=== PATIENT | female | born 1995 | race Caucasian/White ===

== ENCOUNTER 2017-08-27 11:27 | Emergency (ER) | payer SELFPAY ==
[2017-08-27] MEDS ORDERED: NORMAL SALINE 1000 ML 1,000 ML IV ONE (11:39)
--- NOTE | 2017-08-27 11:45 | ER Document Report ---
ED Medical Screen (RME) - General Chief Complaint: Vomiting Stated Complaint: ABDOMINAL PAIN,VOMITING Time Seen by Provider: 08/27/17 11:39 Mode of Arrival: Ambulatory Information source: Patient TRAVEL OUTSIDE OF THE [place] IN LAST 30 DAYS: No - HPI Patient complains to provider of: abd pain; vomiting Onset: Yesterday - pt states she has vomited 6-7 times since yesterday am with intermittent abdominal pain. - Related Data Allergies/Adverse Reactions: No Known Allergies Allergy (Verified 08/27/17 11:27) Past Medical History - Social History Frequency of alcohol use: None Drug Abuse: None Renal/ Medical History: Denies: Hx Peritoneal Dialysis Past Surgical History: Reports: Hx Appendectomy, Hx Tonsillectomy - and adenoids - Immunizations Immunizations up to date: Yes Hx Diphtheria, Pertussis, Tetanus Vaccination: Yes Physical Exam - Vital signs Vitals: Temp Pulse Resp BP Pulse Ox 98.3 F 99 H 20 137/69 H 94 08/27/17 11:30 08/27/17 11:30 08/27/17 11:30 08/27/17 11:30 08/27/17 11:30 Course - Vital Signs Vital signs: Temp Pulse Resp BP Pulse Ox 98.3 F 99 H 20 137/69 H 94 08/27/17 11:30 08/27/17 11:30 08/27/17 11:30 08/27/17 11:30 08/27/17 11:30
[2017-08-27 12:18] LABS: ABSOLUTE BASOPHILS # (AUTO) 0.2 10^3/uL (0.0-0.2); ABSOLUTE EOSINOPHILS # (AUTO) 0.5 10^3/uL (0.0-0.6); ABSOLUTE LYMPHOCYTES (AUTO) 3.5 10^3/uL (0.5-4.7); ABSOLUTE NEUT (AUTO) 9.7 10^3/uL (1.7-8.2); EOSINOPHILS % (AUTO) 3.5 % (0-6); HEMATOCRIT 40.3 % (36.0-47.0); HEMOGLOBIN 13.3 g/dL (12.0-15.5); LYMPHOCYTES % (AUTO) 23.7 % (13-45); MEAN CORPUSCULAR HEMOGLOBIN 25.8 pg (27.0-33.4); MEAN CORPUSCULAR HGB CONC 33.1 g/dL (32.0-36.0); MEAN CORPUSCULAR VOLUME 78 fl (80-97); MONOCYTES % (AUTO) 6.7 % (3-13); PLATELET COUNT 298 10^3/uL (150-450); RED BLOOD COUNT 5.16 10^6/uL (3.72-5.28); RED CELL DISTRIBUTION WIDTH 16.5 % (11.5-14.0); SEGMENTED NEUTROPHILS % (AUTO) 65.1 % (42-78); TOTAL CELLS COUNTED % (AUTO) 100 %; WHITE BLOOD COUNT 14.9 10^3/uL (4.0-10.5)
[2017-08-27 12:19] LABS: BILIRUBIN,URINE NEGATIVE (NEGATIVE); COLOR,URINE YELLOW; GLUCOSE, URINE NEGATIVE (NEGATIVE); KETONES,URINE NEGATIVE (NEGATIVE); LEUKOCYTE ESTERASE,URINE LARGE (NEGATIVE); NITRITE,URINE NEGATIVE (NEGATIVE); PROTEIN,URINE NEGATIVE (NEGATIVE); URINE SPECIFIC GRAVITY 1.013; UROBILINOGEN,URINE NEGATIVE mg/dL (<2.0)
[2017-08-27 12:22] LABS: APPEARANCE,URINE CLOUDY
[2017-08-27 12:32] LABS: ALANINE AMINOTRANSFERASE 26 U/L (5-35); ALKALINE PHOSPHATASE 64 U/L (50-135); ANION GAP 9 (5-19); ASPARTATE AMINO TRANSFERASE 13 U/L (5-30); BILIRUBIN,DIRECT 0.2 mg/dL (0.0-0.4); BILIRUBIN,TOTAL 0.3 mg/dL (0.2-1.3); BLOOD UREA NITROGEN 5 mg/dL (7-20); CALCIUM 9.6 mg/dL (8.4-10.2); CARBON DIOXIDE 24 mmol/L (22-30); CHLORIDE 106 mmol/L (98-107); GLUCOSE 88 mg/dL (75-110); POTASSIUM 4.1 mmol/L (3.6-5.0); TOTAL PROTEIN 7.2 g/dL (6.3-8.2)
--- NOTE | 2017-08-27 12:57 | RADIOLOGY REPORT (SQ) ---
EXAM DESCRIPTION: ACUTE ABDOMEN SERIES COMPLETED DATE/TIME: 08/27/2017 12:46 pm REASON FOR STUDY: abd pain COMPARISON: None. NUMBER OF VIEWS: Three views. TECHNIQUE: Frontal chest, supine abdomen and upright abdomen radiographic images acquired. LIMITATIONS: None. FINDINGS: CHEST: Lungs clear of infiltrates. Cardiac silhouette size, cira, bony structures unremar kable. FREE AIR: None. No abnormal gas collections. BOWEL GAS PATTERN: Nonobstructive pattern. No dilated loops or air fluid levels. CALCIFICATIONS: No suspicious calcifications. HARDWARE: Clips right lower quadrant post appendectomy. SOFT TISSUES: No gross mass or suggestion of organomegaly. BONES: No acute fracture. No worrisome bone lesions. OTHER: No other significant finding. IMPRESSION: NO RADIOGRAPHIC EVIDENCE FOR ACUTE ABDOMINAL DISEASE. TECHNICAL DOCUMENTATION: JOB ID: [id number] [employer]- All Rights Reserved
[2017-08-27] MEDS ORDERED: CEFTRIAXONE 1 GM/D5W RTU 1 GM/50 ML RTUPB IV ONE (13:41)
[2017-08-27] MEDS ORDERED: ONDANSETRON ODT 4 MG TAB (6 TAB/ER DISP) PO PRN (13:42)
[2017-08-27] MEDS ORDERED: CEFTRIAXONE INJ 1000 MG VIAL ONE (13:53)
--- NOTE | 2017-08-27 14:51 | ER Document Report ---
ED General - General Chief Complaint: Vomiting Stated Complaint: ABDOMINAL PAIN,VOMITING Time Seen by Provider: 08/27/17 11:39 Mode of Arrival: Ambulatory TRAVEL OUTSIDE OF THE [place] IN LAST 30 DAYS: No - HPI Patient complains to provider of: Dysuria diffuse abdominal pain nausea vomiting Notes: Patient coming in for the above-stated symptoms ongoing for the last 4 days. Patient states difficulty keeping anything down. Patient states she does smoke approximately pack a day. Patient denies chills states fever subjective. Denies any recent travel denies recent antibiotics. Upon my evaluation patient had been seen in triage given anti-medic medications she was currently eating crackers upon my evaluation. Patient states feeling a little bit better. - Related Data Allergies/Adverse Reactions: No Known Allergies Allergy (Verified 08/27/17 11:27) Past Medical History - General Information source: Patient - Social History Smoking Status: Current Every Day Smoker Frequency of alcohol use: None Drug Abuse: None Family History: Reviewed & Not Pertinent Patient has suicidal ideation: No Patient has homicidal ideation: No Renal/ Medical History: Denies: Hx Peritoneal Dialysis Past Surgical History: Reports: Hx Appendectomy, Hx Tonsillectomy - and adenoids - Immunizations Immunizations up to date: Yes Hx Diphtheria, Pertussis, Tetanus Vaccination: Yes Review of Systems - Review of Systems Constitutional: No symptoms reported EENT: No symptoms reported Cardiovascular: No symptoms reported Respiratory: No symptoms reported Gastrointestinal: Abdominal pain, Nausea, Vomiting Genitourinary: Dysuria Female Genitourinary: No symptoms reported Musculoskeletal: No symptoms reported Skin: No symptoms reported Hematologic/Lymphatic: No symptoms reported Neurological/Psychological: No symptoms reported -: Yes All other systems reviewed and negative Physical Exam - Vital signs Vitals: Temp Pulse Resp BP Pulse Ox 98.3 F 99 H 20 137/69 H 94 08/27/17 11:30 08/27/17 11:30 08/27/17 11:30 08/27/17 11:30 08/27/17 11:30 Interpretation: Normal - General General appearance: Appears well, Alert - HEENT Head: Normocephalic, Atraumatic Eyes: Normal Pupils: PERRL - Respiratory Respiratory status: No respiratory distress Chest status: Nontender Breath sounds: Normal Chest palpation: Normal - Cardiovascular Rhythm: Regular Heart sounds: Normal auscultation Murmur: No - Abdominal Inspection: Normal Distension: No distension Bowel sounds: Normal Tenderness: Nontender Organomegaly: No organomegaly - Back Back: Normal, Nontender - Extremities General upper extremity: Normal inspection, Nontender, Normal color, Normal ROM , Normal temperature General lower extremity: Normal inspection, Nontender, Normal color, Normal ROM , Normal temperature, Normal weight bearing. No: Kylah's sign - Neurological Neuro grossly intact: Yes Cognition: Normal Orientation: AAOx4 [place] Coma Scale Eye Opening: Spontaneous Sahil Coma Scale Verbal: Oriented [place] Coma Scale Motor: Obeys Commands [place] Coma Scale Total: 15 Speech: Normal Motor strength normal: LUE, RUE, LLE, RLE Sensory: Normal - Psychological Associated symptoms: Normal affect, Normal mood - Skin Skin Temperature: Warm Skin Moisture: Dry Skin Color: Normal Course - Re-evaluation Re-evalutation: 08/27/17 14:44 The patient presents with abdominal pain without signs of peritonitis or other life-threatening or serious etiology. The patient appears stable for discharge and has been instructed to return immediately if the symptoms worsen in any way , or in 8-12hr if not improved for re-evaluation. The patient has been instructed to return if the symptoms worsen or change in any way. Patient does have signs of urinary tract infection. Patient was given a dose of Rocephin. Patient was prescribed Keflex patient states that she would be unable to afford her antibiotics explained patient that this was $[address] 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 there is any assistance I was informed since the patient smokes throughout not be able to provide any assistance I encouraged patient to find a family member to help her with her pain of her antibiotic - Vital Signs Vital signs: Temp Pulse Resp BP Pulse Ox 98.3 F 99 H 20 137/69 H 94 08/27/17 11:30 08/27/17 11:30 08/27/17 11:30 08/27/17 11:30 08/27/17 11:30 - Laboratory Result Diagrams: 08/27/17 11:56 08/27/17 11:56 Laboratory results interpreted by me: 08/27/17 08/27/17 08/27/17 11:45 11:56 11:56 WBC 14.9 H MCV 78 L MCH 25.8 L RDW 16.5 H Absolute Neutrophils 9.7 H BUN 5 L Ur Leukocyte Esterase LARGE H Discharge - Discharge Clinical Impression: UTI (urinary tract infection) Qualifiers: Urinary tract infection type: site unspecified Hematuria presence: without hematuria Qualified Code(s): N39.0 - Urinary tract infection, site not specified N&V (nausea and vomiting) Qualifiers: Vomiting type: unspecified Vomiting Intractability: unspecified Qualified Code( s): R11.2 - Nausea with vomiting, unspecified Condition: Good Disposition: HOME, SELF-CARE Instructions: Gastroenteritis (adult) ([facility]), Urinary Tract Infection ([facility]), Cephalexin ([facility]) Additional Instructions: Follow-up with your primary care physician. Take medication as prescribed return to ER symptoms worsen. Prescriptions: Cephalexin Monohydrate [Keflex 500 mg Capsule] 500 mg PO Q6H 5 Days capsule Metoclopramide HCl [Reglan] 5 mg PO Q6 #20 tablet Forms: Return to Work
[2017-08-27 15:30] VITALS: BP 113/53
== END 2017-08-27 15:18 | disposition home or self-care (01) ==
LOC: ER 11:27
DX: N39.0 Urinary tract infection, site not specified (principal); R10.84 Generalized abdominal pain; R30.0 Dysuria; R11.2 Nausea with vomiting, unspecified; F17.200 Nicotine dependence, unspecified, uncomplicated; Z90.49 Acquired absence of other specified parts of digestive tract
CPT/HCPCS: 99284; 96361; 96365; 36415; 85025; 81025; 80053; 81001; 74022; J0696; J7030

== ENCOUNTER 2018-01-21 22:26 | Emergency (ER) | payer SELFPAY ==
[2018-01-21] MEDS ORDERED: ACETAMINOPHEN 325 MG TABLET PO ONE (23:40)
--- NOTE | 2018-01-21 23:42 | ER Document Report ---
ED Medical Screen (RME) - General Chief Complaint: Abdominal Pain Stated Complaint: SIDE PAIN Time Seen by Provider: 01/21/18 23:40 Mode of Arrival: Ambulatory Information source: Patient Notes: Patient presents complaining of left lower quadrant pelvic pain for the past 2 months that worsened tonight. Patient denies any vaginal bleeding, discharge or urinary symptoms. Patient denies any fever. hx: Appendectomy, tonsillectomy adenoids I have greeted and performed a rapid initial assessment of this patient. A comprehensive ED assessment and evaluation of the patient, analysis of test results and completion of the medical decision making process will be conducted by additional ED providers. TRAVEL OUTSIDE OF THE [place] IN LAST 30 DAYS: No - Related Data Allergies/Adverse Reactions: No Known Allergies Allergy (Verified 08/27/17 11:27) Past Medical History Renal/ Medical History: Denies: Hx Peritoneal Dialysis Past Surgical History: Reports: Hx Appendectomy, Hx Tonsillectomy - and adenoids - Immunizations Immunizations up to date: Yes Hx Diphtheria, Pertussis, Tetanus Vaccination: Yes Physical Exam - Vital signs Vitals: Temp Pulse Resp BP Pulse Ox 99.2 F 99 20 115/71 98 01/21/18 22:50 01/21/18 22:50 01/21/18 22:50 01/21/18 22:50 01/21/18 22:50 - Abdominal Inspection: Obese Tenderness: Tender - Left lower quadrant Course - Vital Signs Vital signs: Temp Pulse Resp BP Pulse Ox 99.2 F 99 20 115/71 98 01/21/18 22:50 01/21/18 22:50 01/21/18 22:50 01/21/18 22:50 01/21/18 22:50
[2018-01-22 00:34] LABS: ABSOLUTE BASOPHILS # (AUTO) 0.2 10^3/uL (0.0-0.2); ABSOLUTE EOSINOPHILS # (AUTO) 0.7 10^3/uL (0.0-0.6); ABSOLUTE LYMPHOCYTES (AUTO) 3.1 10^3/uL (0.5-4.7); ABSOLUTE MONOCYTES (AUTO) 1.1 10^3/uL (0.1-1.4); ABSOLUTE NEUT (AUTO) 6.4 10^3/uL (1.7-8.2); BASOPHILS % (AUTO) 1.3 % (0-2); EOSINOPHILS % (AUTO) 6.3 % (0-6); HEMATOCRIT 40.9 % (36.0-47.0); HEMOGLOBIN 13.7 g/dL (12.0-15.5); LYMPHOCYTES % (AUTO) 27.1 % (13-45); MEAN CORPUSCULAR HEMOGLOBIN 26.3 pg (27.0-33.4); MEAN CORPUSCULAR HGB CONC 33.5 g/dL (32.0-36.0); MEAN CORPUSCULAR VOLUME 79 fl (80-97); MONOCYTES % (AUTO) 9.8 % (3-13); PLATELET COUNT 300 10^3/uL (150-450); SEGMENTED NEUTROPHILS % (AUTO) 55.5 % (42-78); TOTAL CELLS COUNTED % (AUTO) 100 %; WHITE BLOOD COUNT 11.6 10^3/uL (4.0-10.5)
[2018-01-22 00:39] LABS: APPEARANCE,URINE SLIGHTLY-CLOUDY; BILIRUBIN,URINE NEGATIVE (NEGATIVE); COLOR,URINE YELLOW; GLUCOSE, URINE NEGATIVE (NEGATIVE); KETONES,URINE NEGATIVE (NEGATIVE); LEUKOCYTE ESTERASE,URINE SMALL (NEGATIVE); NITRITE,URINE NEGATIVE (NEGATIVE); PROTEIN,URINE NEGATIVE (NEGATIVE); URINE SPECIFIC GRAVITY 1.025
[2018-01-22 00:58] LABS: ANION GAP 11 (5-19); BLOOD UREA NITROGEN 10 mg/dL (7-20); CALCIUM 8.8 mg/dL (8.4-10.2); CARBON DIOXIDE 24 mmol/L (22-30); CHLORIDE 110 mmol/L (98-107); GLUCOSE 101 mg/dL (75-110); POTASSIUM 4.2 mmol/L (3.6-5.0); SODIUM 145.2 mmol/L (137-145)
--- NOTE | 2018-01-22 01:19 | ER Document Report ---
ED General - General Chief Complaint: Abdominal Pain Stated Complaint: SIDE PAIN Time Seen by Provider: 01/21/18 23:40 Mode of Arrival: Ambulatory Information source: Patient Notes: Patient is a 22-year-old female with complaints of left lower quadrant pain that radiates into her vagina. Patient reports that this pain has been ongoing for about 2 months. Patient reports the pain worsened this evening which is what prompted her to come in. Patient reports some associated nausea. Patient denies any vaginal discharge, urinary frequency or dysuria. Patient reports that the pain is worse with her menstrual cycle. Patient denies any fever or chills. TRAVEL OUTSIDE OF THE [place] IN LAST 30 DAYS: No - Related Data Allergies/Adverse Reactions: No Known Allergies Allergy (Verified 08/27/17 11:27) Past Medical History - General Information source: Patient - Social History Smoking Status: Never Smoker Frequency of alcohol use: None Drug Abuse: None Lives with: Spouse/Significant other Family History: Reviewed & Not Pertinent Patient has suicidal ideation: No Patient has homicidal ideation: No Renal/ Medical History: Denies: Hx Peritoneal Dialysis GI Medical History: Reports: Hx Ulcer Past Surgical History: Reports: Hx Appendectomy, Hx Tonsillectomy - and adenoids - Immunizations Immunizations up to date: Yes Hx Diphtheria, Pertussis, Tetanus Vaccination: Yes Review of Systems - Review of Systems Constitutional: No symptoms reported EENT: No symptoms reported Cardiovascular: No symptoms reported Respiratory: No symptoms reported Gastrointestinal: See HPI Genitourinary: See HPI Female Genitourinary: No symptoms reported Musculoskeletal: No symptoms reported Skin: No symptoms reported Hematologic/Lymphatic: No symptoms reported Neurological/Psychological: No symptoms reported Physical Exam - Vital signs Vitals: Temp Pulse Resp BP Pulse Ox 99.2 F 99 20 115/71 98 01/21/18 22:50 01/21/18 22:50 01/21/18 22:50 01/21/18 22:50 01/21/18 22:50 - Notes Notes: PHYSICAL EXAMINATION: GENERAL: Well-appearing, well-nourished and in no acute distress. HEAD: Atraumatic, normocephalic. EYES: Pupils equal round and reactive to light, extraocular movements intact, conjunctiva are normal. ENT: Nares patent, oropharynx clear without exudates. Moist mucous membranes. NECK: Normal range of motion, supple without lymphadenopathy. LUNGS: Breath sounds clear to auscultation bilaterally and equal. No wheezes rales or rhonchi. HEART: Regular rate and rhythm without murmurs ABDOMEN: Soft nondistended abdomen. TTP to LLQ. No guarding, no rebound. No masses appreciated. Female : deferred Musculoskeletal: Normal range of motion, no pitting or edema. No cyanosis. NEUROLOGICAL: Cranial nerves grossly intact. Normal speech, normal gait. Normal sensory, motor exams PSYCH: Normal mood, normal affect. SKIN: Warm, Dry, normal turgor, no rashes or lesions noted. Course - Re-evaluation Re-evalutation: Patient is a 22-year-old female with complaints of left lower quadrant pain that radiates into her vagina. Patient concerned she may have endometriosis or an ovarian cyst. Workup today is completely benign. CBC, metabolic panel and urinalysis are all unremarkable. Acute abdominal series showed nonobstructive bowel gas however no evidence of constipation. Transvaginal ultrasound is unremarkable, both ovaries are visualized both have blood flow and there is no evidence of any ovarian cysts or ovarian torsion. Pelvic exam was performed patient does have a scant amount very thin white discharge however there is no odor and patient has no other symptoms. Patient reports relief of pain after administration of Toradol. Will discharge patient home with p.o. Toradol. Patient will follow up with her A OPERATOR for further evaluation of her concern for endometriosis as her workup today was normal. - Vital Signs Vital signs: Temp Pulse Resp BP Pulse Ox 97.7 F 73 20 99/57 L 99 01/22/18 04:06 01/22/18 04:06 01/22/18 04:06 01/22/18 04:06 01/22/18 04:06 - Laboratory Result Diagrams: 01/22/18 00:25 01/22/18 00:25 Laboratory results interpreted by me: 01/22/18 01/22/18 01/22/18 00:25 00:25 00:25 WBC 11.6 H MCV 79 L MCH 26.3 L RDW 15.0 H Eosinophils % 6.3 H Absolute Eosinophils 0.7 H Sodium 145.2 H Chloride 110 H Urine Urobilinogen 2.0 H Ur Leukocyte Esterase SMALL H Discharge - Discharge Clinical Impression: Pelvic pain, Vaginal pain Condition: Stable Disposition: HOME, SELF-CARE Additional Instructions: Pelvic Pain There are many causes of pain in the pelvic area. The cause could be the tubes, ovaries, uterus, intestines, appendix, pelvic muscles and connective tissue, or the urinary tract. The cause of your pelvic pain is not clear. However, it seems safe to treat you outside the hospital. If the pain sounds like a temporary problem, we sometimes wait to see if it goes away. Other patients may need additional tests, such as pelvic ultrasound or cultures. Conditions may change. Call us or come back for reexamination if any problems occur, such as: (1) Pain that becomes more severe, steady, or becomes concentrated in one specific area. Also, pain that is more severe with movement or coughing. (2) Vomiting that persists or becomes more frequent. (3) Blood in the vomitus, urine, or bowel movements. Blood in the stool may have a tarry or black appearance. (4) Shaking chills or fever greater than 100 degrees. (5) The abdomen becomes more distended or swollen. (6) Bowel movements cease. (7) Heavy vaginal bleeding. Abdominal Pain There are many causes of abdominal pain. Pain can mean a serious problem requiring surgery (such as appendicitis). It can also be an innocent problem that goes away on its own (such as a viral infection). Often, time must pass to determine the cause of pain. The physician does not feel that hospitalization is necessary, at present. Things may change within the next 24 hours. Call the doctor or come back for re- examination if any problems occur, such as: (1) Pain that becomes more severe, steady, or becomes concentrated in one specific area. Also, pain that is more severe with movement or coughing. (2) Vomiting that persists or becomes more frequent. (3) Blood in the vomitus, urine, or bowel movements. Blood in the stool may have a tarry or black appearance. (4) Shaking chills or fever greater than 100 degrees F. (5) The abdomen becomes more distended or swollen. (6) Bowel movements cease. (7) Failure to improve as expected. Please take the pain medication as prescribed. You will need to follow-up with an A OPERATOR provider if this pain persists. Your workup today was completely normal. Please return to the emergency department if you develop worsening pain, persistent vomiting, fever or any other symptoms that are concerning to you. Prescriptions: Ketorolac Tromethamine [Toradol 10 mg Tablet] 10 mg PO Q8HP PRN #20 tablet PRN Reason:
[2018-01-22] MEDS ORDERED: KETOROLAC TROMETHAMINE 60 MG/2 ML SDV IM ONE (01:22)
--- NOTE | 2018-01-22 01:44 | RADIOLOGY REPORT (SQ) ---
EXAM DESCRIPTION: US PELVIS COMPLETED DATE/TME: 01/21/2018 23:40 CLINICAL HISTORY: 22 years, Female, LLQ pain COMPARISON: None. TECHNIQUE: Duplex sonographic imaging was acquired through the pelvis with a transducer in the transvaginal position. LIMITATIONS: None. FINDINGS: Cervix appears closed and measures 3.1 cm. Uterus measures 9.3 x 4.3 x 6.1 cm. Right ovary measures 2.2 x 3.3 x 2.7 cm. Normal blood flow. Left ovary measures 2.8 x 2.6 x 3.2 cm with normal blood flow. Endometrium measures 9 mm. IMPRESSION: No evidence of acute process 2010 [employer]- All Rights Reserved
[2018-01-22 02:40] LABS: T.VAGINALIS (WET MOUNT) NO TRICHOMONAS SEEN; WBCS (WET MOUNT) FEW WBCS SEEN; YEAST (WET MOUNT) NO YEAST SEEN
[2018-01-22 02:41] LABS: BACTERIA (WET MOUNT) 3+ BACTERIA SEEN; EPITHELIALS (WET MOUNT) 3+ EPITHELIALS SEEN; RBCS (WET MOUNT) RARE RBCS SEEN
--- NOTE | 2018-01-22 03:06 | RADIOLOGY REPORT (SQ) ---
EXAM DESCRIPTION: Acute abdominal series COMPLETED DATE/TME: 01/22/2018 02:17 CLINICAL HISTORY: 22 years, Female, evaluate for constipation COMPARISON: 08/27/2017 FINDINGS: Single view of the chest with upright and spine views of the abdomen. Cardiomediastinal silhouette has normal size and contour. No consolidation, pneumothorax, or pleural effusion. No dilated loops of large or small bowel. Postoperative change in the right lower abdomen. No free intraperitoneal air. No definite organomegaly. No definite abnormal calcifications. No acute osseous abnormalities. IMPRESSION: 1. No acute pulmonary process. Nonobstructive bowel gas pattern. 2010 [employer]- All Rights Reserved
[2018-01-22 04:02] LABS: CHLAM PCR NOT DETECTED (NOT DETECT); GON PCR NOT DETECTED (NOT DETECT)
[2018-01-22 04:18] VITALS: BP 99/57
== END 2018-01-22 04:10 | disposition home or self-care (01) ==
LOC: ER 22:26
DX: R10.2 Pelvic and perineal pain (principal); R10.32 Left lower quadrant pain; R11.0 Nausea
CPT/HCPCS: 99284; 96372; 36415; 87210; 85025; 81025; 80048; 81001; 87491; 87591; 74022; 76830; 93976; J1885

== ENCOUNTER 2018-09-12 20:38 | Emergency (ER) | payer MEDICAID ==
[2018-09-12] MEDS ORDERED: ACETAMINOPHEN 325 MG TABLET PO ONE (21:22)
--- NOTE | 2018-09-12 22:20 | ER Document Report ---
HPI - HPI Patient complains to provider of: Right lower extremity pain Time Seen by Provider: 09/12/18 21:11 Pain Level: 3 Context: Patient is a 22-year-old female presents to the emergency department for generalized right lower extremity pain after inverting her right ankle and falling onto her right knee. Patient is denying any trauma to her head, neck, back or any pain in any. States she has been able to put some weight on the right lower extremity but is in pain. Patient states as long as she is not placing weight on the right lower extremity she has not in any pain. Patient states she does have a slight cough and generalized congestion. States multiple people at home are sick with flulike symptoms. Past medical history: None Medications: None Allergies: None - REPRODUCTIVE LMP: 08/24/2018 Reproductive: DENIES: : - MUSCULOSKELETAL Musculoskeletal: REPORTS: Extremity pain - right ankle Past Medical History - General Information source: Patient - Social History Smoking Status: Unknown if Ever Smoked Family History: Reviewed & Not Pertinent Patient has suicidal ideation: No Patient has homicidal ideation: No Renal/ Medical History: Denies: Hx Peritoneal Dialysis GI Medical History: Reports: Hx Ulcer Past Surgical History: Reports: Hx Appendectomy, Hx Tonsillectomy - and adenoids - Immunizations Immunizations up to date: Yes Hx Diphtheria, Pertussis, Tetanus Vaccination: Yes Vertical Provider Document - CONSTITUTIONAL Agree With Documented VS: Yes Notes: GENERAL: Alert, interacts well. No acute distress. HEAD: Normocephalic, atraumatic. EYES: Pupils equal, round, and reactive to light. Extraocular movements intact. ENT: Oral mucosa moist, tongue midline. NECK: Full range of motion. Supple. Trachea midline. LUNGS: Clear to auscultation bilaterally, no wheezes, rales, or rhonchi. No respiratory distress. HEART: Regular rate and rhythm. No murmur ABDOMEN: Soft, non-tender. Non-distended. Bowel sounds present in all 4 quadrants. EXTREMITIES: Moves all 4 extremities spontaneously. No edema, normal radial and dorsalis pedis pulses bilaterally. No cyanosis. No swelling, erythema, ec chymosis noted to the right lower extremity. Patient does complain of pain upon valgus maneuver of the right knee denies pain with valgus maneuver or anterior draw. Patient's also complaining of generalized pain on palpation of her right mario and her right lateral malleolus. Again no outward ecchymosis, erythema, swelling noted to the entire right lower extremity. PMI is equal right lower extremity. BACK: no cervical, thoracic, lumbar midline tenderness. No saddle anesthesia, normal distal neurovascular exam. NEUROLOGICAL: Alert and oriented x3. Normal speech. cranial nerves II through XI I grossly intact PSYCH: Normal affect, normal mood. SKIN: Warm, dry, normal turgor. No rashes or lesions noted. - INFECTION CONTROL TRAVEL OUTSIDE OF THE [place] IN LAST 30 DAYS: No Course - Re-evaluation Re-evalutation: 09/12/18 23:14 Patient's x-rays revealed no signs of abnormalities, knee immobilizer and Robson wrap applied to right lower extremity. Discussed close follow-up with primary care provider and orthopedics. Patient voices understanding and was instructed on crutch use. Patient stable for discharge. - Vital Signs Vital signs: Temp Pulse Resp BP Pulse Ox 100.5 F H 115 H 16 142/72 H 98 09/12/18 20:51 09/12/18 20:51 09/12/18 20:51 09/12/18 20:51 09/12/18 20:51 Discharge - Discharge Clinical Impression: Right leg injury Qualifiers: Encounter type: initial encounter Qualified Code(s): S89.91XA - Unspecified injury of right lower leg, initial encounter Ankle pain, right Qualifiers: Chronicity: acute Qualified Code(s): M25.571 - Pain in right ankle and joints of right foot Right knee pain Qualifiers: Chronicity: acute Qualified Code(s): M25.561 - Pain in right knee Condition: Stable Disposition: HOME, SELF-CARE Instructions: Robson Wrap ([facility]), Ice & Elevation ([facility]), Sprained Ankle ([facility]), Use of Crutches ([facility]), Knee Immobilizing Splint ([facility]), Sprained Knee ([facility]) Additional Instructions: As we discussed you have been seen and treated in the emergency part for your generalized right lower extremity pain after a fall. Your x-rays came back with no signs of abnormalities. Unfortunately x-rays do not show tendons and ligaments. It is likely that you stretched a tendon or ligament. Please use knee immobilizer and Robson wrap as needed for generalized pain. Please also take [id number] Tylenol Motrin. I have given you phone numbers for orthopedics you should follow-up with them for continued care. Please immediately return to the emergency room for any other concerning symptoms. Forms: Return to Work Referrals: YUDY HOFFMAN MD [ACTIVE STAFF] - Follow up as needed
--- NOTE | 2018-09-12 22:39 | RADIOLOGY REPORT (SQ) ---
EXAM DESCRIPTION: XR KNEE 4 OR MORE VIEWS COMPLETED DATE/TME: 09/12/2018 21:22 CLINICAL HISTORY: 22 years Female, pain COMPARISON: None. Findings: Bones, joints, and soft tissues of the RIGHT XR KNEE 4 VIEWS appear intact. IMPRESSION: No acute findings.
--- NOTE | 2018-09-12 22:45 | RADIOLOGY REPORT (SQ) ---
EXAM DESCRIPTION: XR ANKLE 3 OR MORE VIEWS, XR TIBIA FIBULA 2 VIEWS COMPLETED DATE/TME: 09/12/2018 21:23 CLINICAL HISTORY: 22 years Female, pain COMPARISON: None. Findings: Bones, joints, and soft tissues of the RIGHT XR ANKLE 3 OR MORE VIEWS, XR TIBIA FIBULA 2 VIEWS appear intact. IMPRESSION: No acute findings.
[2018-09-12 23:30] VITALS: BP 134/77
== END 2018-09-12 23:33 | disposition home or self-care (01) ==
LOC: ER 20:38
DX: S89.91XA Unspecified injury of right lower leg, initial encounter (principal); M25.571 Pain in right ankle and joints of right foot; M25.561 Pain in right knee; W19.XXXA Unspecified fall, initial encounter; R05 Cough; R68.89 Other general symptoms and signs
CPT/HCPCS: 99283; 73610; 73564; 73590; L1830; J3490

== ENCOUNTER 2018-10-02 23:00 | Emergency (ER) | payer MEDICAID ==
--- NOTE | 2018-10-03 01:26 | ER Document Report ---
ED General - General Chief Complaint: Flank Pain Stated Complaint: FLANK PAIN Time Seen by Provider: 10/03/18 01:21 Notes: 22-year-old female presents with bilateral kidney pain, recent history of vomiting, and some diarrhea that is been going on for 3-4 days. She saw her primary doctor on Friday who suspected it was a musculoskeletal issue and prescribed her muscle relaxers and antinausea medicine. She states since taking the antinausea medicine she has not vomited in 2 days. She said her fluid intake has been good. TRAVEL OUTSIDE OF THE [place] IN LAST 30 DAYS: No - Related Data Allergies/Adverse Reactions: No Known Allergies Allergy (Verified 08/27/17 11:27) Past Medical History - Social History Family History: Reviewed & Not Pertinent Renal/ Medical History: Denies: Hx Peritoneal Dialysis GI Medical History: Reports: Hx Ulcer Past Surgical History: Reports: Hx Appendectomy, Hx Tonsillectomy - and adenoids - Immunizations Immunizations up to date: Yes Hx Diphtheria, Pertussis, Tetanus Vaccination: Yes Physical Exam - Vital signs Vitals: Temp Pulse Resp BP Pulse Ox 99.8 F 114 H 19 144/87 H 97 10/02/18 23:09 10/02/18 23:09 10/02/18 23:09 10/02/18 23:09 10/02/18 23:09 - Respiratory Respiratory status: No respiratory distress Chest status: Nontender Breath sounds: Normal - Cardiovascular Rhythm: Regular Heart sounds: Normal auscultation, S1 appreciated, S2 appreciated Murmur: No Course - Vital Signs Vital signs: Temp Pulse Resp BP Pulse Ox 99.8 F 114 H 19 144/87 H 97 10/02/18 23:09 10/02/18 23:09 10/02/18 23:09 10/02/18 23:09 10/02/18 23:09
--- NOTE | 2018-10-03 01:29 | ER Document Report ---
ED Medical Screen (RME) - General Chief Complaint: Flank Pain Stated Complaint: FLANK PAIN Time Seen by Provider: 10/03/18 01:21 Notes: 22-year-old female presents with bilateral kidney pain, recent history of vomiting, and some diarrhea that is been going on for 3-4 days. She saw her primary doctor on Friday who suspected it was a musculoskeletal issue and prescribed her muscle relaxers and antinausea medicine. She denies any recent i llness. She states since taking the antinausea medicine she has not vomited in 2 days. She said her fluid intake has been good. I have greeted and performed a rapid initial assessment of this patient. A comprehensive ED assessment and evaluation of the patient, analysis of test results and completion of medical decision making process will be conducted by an additional ED providers. TRAVEL OUTSIDE OF THE [place] IN LAST 30 DAYS: No - Related Data Allergies/Adverse Reactions: No Known Allergies Allergy (Verified 08/27/17 11:27) Past Medical History Renal/ Medical History: Denies: Hx Peritoneal Dialysis GI Medical History: Reports: Hx Ulcer Past Surgical History: Reports: Hx Appendectomy, Hx Tonsillectomy - and adenoids - Immunizations Immunizations up to date: Yes Hx Diphtheria, Pertussis, Tetanus Vaccination: Yes Physical Exam - Vital signs Vitals: Temp Pulse Resp BP Pulse Ox 99.8 F 114 H 19 144/87 H 97 10/02/18 23:09 10/02/18 23:09 10/02/18 23:10/02/18 23:10/02/18 23:09 - Respiratory Respiratory status: No respiratory distress Chest status: Nontender Breath sounds: Normal - Cardiovascular Rhythm: Regular Heart sounds: Normal auscultation, S1 appreciated, S2 appreciated Murmur: No - Abdominal Bowel sounds: Normal - Back Back: CVA tenderness - R>L. No: Vertebra tenderness Course - Vital Signs Vital signs: Temp Pulse Resp BP Pulse Ox 99.8 F 114 H 19 144/87 H 97 10/02/18 23:09 10/02/18 23:09 10/02/18 23:09 10/02/18 23:09 10/02/18 23:09
[2018-10-03 01:53] LABS: ABSOLUTE BASOPHILS # (AUTO) 0.2 10^3/uL (0.0-0.2); ABSOLUTE EOSINOPHILS # (AUTO) 0.7 10^3/uL (0.0-0.6); ABSOLUTE LYMPHOCYTES (AUTO) 3.5 10^3/uL (0.5-4.7); ABSOLUTE MONOCYTES (AUTO) 1.4 10^3/uL (0.1-1.4); ABSOLUTE NEUT (AUTO) 9.8 10^3/uL (1.7-8.2); BASOPHILS % (AUTO) 1.1 % (0-2); EOSINOPHILS % (AUTO) 4.7 % (0-6); HEMATOCRIT 40.3 % (36.0-47.0); HEMOGLOBIN 13.8 g/dL (12.0-15.5); LYMPHOCYTES % (AUTO) 22.3 % (13-45); MEAN CORPUSCULAR HEMOGLOBIN 28.8 pg (27.0-33.4); MEAN CORPUSCULAR HGB CONC 34.3 g/dL (32.0-36.0); MEAN CORPUSCULAR VOLUME 84 fl (80-97); MONOCYTES % (AUTO) 8.7 % (3-13); PLATELET COUNT 282 10^3/uL (150-450); RED BLOOD COUNT 4.79 10^6/uL (3.72-5.28); RED CELL DISTRIBUTION WIDTH 14.4 % (11.5-14.0); SEGMENTED NEUTROPHILS % (AUTO) 63.2 % (42-78); TOTAL CELLS COUNTED % (AUTO) 100 %; WHITE BLOOD COUNT 15.6 10^3/uL (4.0-10.5)
[2018-10-03 02:09] LABS: APPEARANCE,URINE CLOUDY; BILIRUBIN,URINE NEGATIVE (NEGATIVE); COLOR,URINE YELLOW; GLUCOSE, URINE NEGATIVE (NEGATIVE); KETONES,URINE NEGATIVE (NEGATIVE); LEUKOCYTE ESTERASE,URINE LARGE (NEGATIVE); NITRITE,URINE POSITIVE (NEGATIVE); PROTEIN,URINE 100 mg/dL (NEGATIVE); UROBILINOGEN,URINE NEGATIVE mg/dL (<2.0)
[2018-10-03 02:10] LABS: ALANINE AMINOTRANSFERASE 23 U/L (9-52); ALBUMIN 4.5 g/dL (3.5-5.0); ALKALINE PHOSPHATASE 69 U/L (38-126); ANION GAP 13 (5-19); ASPARTATE AMINO TRANSFERASE 19 U/L (14-36); BILIRUBIN,DIRECT 0.1 mg/dL (0.0-0.4); BILIRUBIN,TOTAL 0.3 mg/dL (0.2-1.3); BLOOD UREA NITROGEN 10 mg/dL (7-20); CALCIUM 9.9 mg/dL (8.4-10.2); CARBON DIOXIDE 26 mmol/L (22-30); CHLORIDE 99 mmol/L (98-107); GLUCOSE 92 mg/dL (75-110); POTASSIUM 3.9 mmol/L (3.6-5.0); SODIUM 138.3 mmol/L (137-145); TOTAL PROTEIN 7.6 g/dL (6.3-8.2)
[2018-10-03] MEDS ORDERED: NORMAL SALINE 1000 ML 1,000 ML IV ONE (02:23)
[2018-10-03] MEDS ORDERED: CEFTRIAXONE INJ 1000 MG VIAL IV ONE (02:23)
[2018-10-03] MEDS ORDERED: ONDANSETRON HCL INJ/PF 4 MG/2 ML SDV IV ONE (02:23)
--- NOTE | 2018-10-03 02:53 | ER Document Report ---
ED General - General Chief Complaint: Flank Pain Stated Complaint: FLANK PAIN Time Seen by Provider: 10/03/18 01:21 Primary Care Provider: GEOFFREY DOUGLASS FNP [Primary Care Provider] - Follow up as needed Notes: Patient is a 22-year-old female with a past medical history of recurrent urinary tract infections, presents with 4 days of bilateral flank pain. Was seen by her primary care physician 4 days ago, diagnosed as having a musculoskeletal strain, started on methocarbamol which she reports has not helped her symptoms. She describes the pain in her bilateral flanks as being a throbbing, aching, constan t pain. Nothing seems to worsen the pain. States this feels exactly the same as when she had pyelonephritis in the past. Has felt feverish but has not recorded temperature at home. Notes associated muscle aches as well as nausea and vomiting. Has been able to tolerate fluids in between episodes of vomiting. TRAVEL OUTSIDE OF THE [place] IN LAST 30 DAYS: No - Related Data Allergies/Adverse Reactions: No Known Allergies Allergy (Verified 08/27/17 11:27) Past Medical History - General Information source: Patient - Social History Smoking Status: Current Every Day Smoker Frequency of alcohol use: None Drug Abuse: None Lives with: Friend Family History: Reviewed & Not Pertinent Renal/ Medical History: Denies: Hx Peritoneal Dialysis GI Medical History: Reports: Hx Ulcer Past Surgical History: Reports: Hx Appendectomy, Hx Tonsillectomy - and adenoids - Immunizations Immunizations up to date: Yes Hx Diphtheria, Pertussis, Tetanus Vaccination: Yes Review of Systems - Review of Systems Notes: Constitutional: Negative for fever. HENT: Negative for sore throat. Eyes: Negative for visual changes. Cardiovascular: Negative for chest pain. Respiratory: Negative for shortness of breath. Gastrointestinal: Positive for bilateral flank pain, positive for nausea and vomiting Genitourinary: Positive for dysuria. Musculoskeletal: Negative for back pain. Skin: Negative for rash. Neurological: Negative for headaches, weakness or numbness. 10 point ROS negative except as marked above and in HPI. Physical Exam - Vital signs Vitals: Temp Pulse Resp BP Pulse Ox 99.8 F 114 H 19 144/87 H 97 10/02/18 23:09 10/02/18 23:09 10/02/18 23:09 10/02/18 23:10/02/18 23:09 Interpretation: Hypertensive, Tachycardic Notes: PHYSICAL EXAMINATION: GENERAL: Well-appearing, well-nourished and in no acute distress. HEAD: Atraumatic, normocephalic. EYES: Pupils equal round and reactive to light, extraocular movements intact, sclera anicteric, conjunctiva are normal. ENT: nares patent, oropharynx clear without exudates. Moderately dry mucous membranes. NECK: Normal range of motion, supple without lymphadenopathy LUNGS: Breath sounds clear to auscultation bilaterally and equal. No wheezes rales or rhonchi. HEART: Regular rate and rhythm without murmurs ABDOMEN: Soft, bilateral CVA tenderness, abdomen nontender, normoactive bowel sounds. No guarding, no rebound. No masses appreciated. EXTREMITIES: Normal range of motion, no pitting or edema. No cyanosis. NEUROLOGICAL: No focal neurological deficits. Moves all extremities spontaneously and on command. PSYCH: Normal mood, normal affect. SKIN: Warm, Dry, normal turgor, no rashes or lesions noted. Course - Re-evaluation Re-evalutation: 10/03/18 02:48 Presentation is most consistent with acute pyelonephritis. Laboratories do demonstrate a large amount of white blood cells in the urine as well as bacteria. Patient has had constitutional symptoms at home. CVA tenderness is present on exam. The remainder laboratories are relatively unremarkable without evidence of renal dysfunction. I do not suspect an acute appendicitis, biliary pathology, pancreatitis, intra-abdominal abscess, or tubo-ovarian abscess based on history and examination. Patient has been given a dose of IV ceftriaxone and a liter of fluids. Patient is able to tolerate oral intake without difficulty. Will be discharged home on 7 day course of cephalexin. A urine culture has been sent. At this time will discharge with return precautions and follow-up recom mendations. Verbal discharge instructions given a the bedside and opportunity for questions given. Medication warnings reviewed. Patient is in agreement with this plan and has verbalized understanding of return precautions and the need for primary care follow-up in the next 24-72 hours. 10/03/18 02:52 - Vital Signs Vital signs: Temp Pulse Resp BP Pulse Ox 99.8 F 114 H 19 144/87 H 97 10/02/18 23:09 10/02/18 23:09 10/02/18 23:10/02/18 23:09 10/02/18 23:09 - Laboratory Result Diagrams: 10/03/18 01:35 10/03/18 01:35 Laboratory results interpreted by me: 10/03/18 10/03/18 01:35 01:35 WBC 15.6 H RDW 14.4 H Absolute Neutrophils 9.8 H Absolute Eosinophils 0.7 H Urine Protein 100 H Urine Blood SMALL H Urine Nitrite POSITIVE H Ur Leukocyte Esterase LARGE H Discharge - Discharge Clinical Impression: Pyelonephritis, Bilateral flank pain Condition: Good Disposition: HOME, SELF-CARE Additional Instructions: You have been diagnosed with a condition called pyelonephritis which is an infection involving your kidneys and bladder. You have been given a dose of antibiotics here in the emergency department to help begin to treat this infection. Your also being sent home on antibiotics. Please start taking these later on today when you fill the prescription. Complete the course even if you feel better. Please return if you have persistent vomiting, pass out, have w orsening pain, become unable to tolerate fluids, or have any other symptoms that are concerning to you. Please follow-up with your primary care physician in the next 24-48 hours. Prescriptions: Cephalexin Monohydrate [Keflex 500 mg Capsule] 500 mg PO Q6H 7 Days capsule Referrals: GEOFFREY DOUGLASS FNP [Primary Care Provider] - Follow up as needed
[2018-10-03 04:12] VITALS: BP 138/78
== END 2018-10-03 04:12 | disposition home or self-care (01) ==
LOC: ER 23:00
DX: N12 Tubulo-interstitial nephritis, not specified as acute or chronic (principal); R10.9 Unspecified abdominal pain; R30.0 Dysuria; F17.200 Nicotine dependence, unspecified, uncomplicated; Z87.440 Personal history of urinary (tract) infections
CPT/HCPCS: 99284; 96374; 36415; 87086; 85025; 81025; 87088; 80053; 81001; 87186; J0696; J2405; J7030; 96365; 96375

== ENCOUNTER 2018-10-20 02:02 | Emergency (ER) | payer MEDICAID ==
[2018-10-20 02:07] VITALS: BP 136/87
== END 2018-10-20 03:25 | disposition left against medical advice (07) ==
LOC: ER 02:02
DX: Z53.21 Procedure and treatment not carried out due to patient leaving prior to being seen by health care provider (principal); L02.91 Cutaneous abscess, unspecified

== ENCOUNTER 2019-04-06 18:46 | Emergency (ER) | payer MEDICAID ==
--- NOTE | 2019-04-06 20:19 | ER Document Report ---
ED Medical Screen (RME) - General Chief Complaint: Vaginal Bleeding Stated Complaint: VAGINAL BLEEDING Time Seen by Provider: 04/06/19 20:14 Primary Care Provider: GEOFFREY DOUGLASS FNP [Primary Care Provider] - Follow up as needed Mode of Arrival: Ambulatory Information source: Patient Notes: Patient is an otherwise healthy 23-year-old female presenting to the emergency department with vaginal bleeding. She states she had a positive test this morning. She states she is passing what appears to be bloody tissue. Exam: Mild tenderness to palpation across the low abdomen. I have greeted and performed a rapid initial assessment of this patient. A comprehensive ED assessment and evaluation of the patient, analysis of test results and completion of the medical decision making process will be conducted by additional ED providers. I have specifically instructed the patient or family members with the patient to immediately return to any nursing staff should anything change in the patient's condition or with their chief complaint. This medical record was dictated with voice recognizing software. There may be grammatical, syntax errors that are unintended. TRAVEL OUTSIDE OF THE [place] IN LAST 30 DAYS: No - Related Data Allergies/Adverse Reactions: No Known Allergies Allergy (Verified 04/06/19 18:50) Past Medical History Renal/ Medical History: Denies: Hx Peritoneal Dialysis GI Medical History: Reports: Hx Ulcer Past Surgical History: Reports: Hx Appendectomy, Hx Tonsillectomy - and adenoids - Immunizations Immunizations up to date: Yes Hx Diphtheria, Pertussis, Tetanus Vaccination: Yes Physical Exam - Vital signs Vitals: Temp Pulse Resp BP Pulse Ox 99.2 F 107 H 16 133/88 H 98 04/06/19 19:00 04/06/19 19:00 04/06/19 19:00 04/06/19 19:00 04/06/19 19:00 Course - Vital Signs Vital signs: Temp Pulse Resp BP Pulse Ox 99.2 F 107 H 16 133/88 H 98 04/06/19 19:00 04/06/19 19:00 04/06/19 19:00 04/06/19 19:00 04/06/19 19:00 Doctor's Discharge - Discharge Referrals: GEOFFREY DOUGLASS FNP [Primary Care Provider] - Follow up as needed
[2019-04-06 21:40] LABS: ABSOLUTE BASOPHILS # (AUTO) 0.1 10^3/uL (0.0-0.2); ABSOLUTE EOSINOPHILS # (AUTO) 0.4 10^3/uL (0.0-0.6); ABSOLUTE LYMPHOCYTES (AUTO) 5.1 10^3/uL (0.5-4.7); ABSOLUTE MONOCYTES (AUTO) 1.1 10^3/uL (0.1-1.4); ABSOLUTE NEUT (AUTO) 11.4 10^3/uL (1.7-8.2); BASOPHILS % (AUTO) 0.8 % (0-2); HEMATOCRIT 44.5 % (36.0-47.0); HEMOGLOBIN 15.2 g/dL (12.0-15.5); LYMPHOCYTES % (AUTO) 28.1 % (13-45); MEAN CORPUSCULAR HGB CONC 34.1 g/dL (32.0-36.0); MEAN CORPUSCULAR VOLUME 82 fl (80-97); MONOCYTES % (AUTO) 6.1 % (3-13); PLATELET COUNT 327 10^3/uL (150-450); RED BLOOD COUNT 5.41 10^6/uL (3.72-5.28); RED CELL DISTRIBUTION WIDTH 14.8 % (11.5-14.0); TOTAL CELLS COUNTED % (AUTO) 100 %; WHITE BLOOD COUNT 18.1 10^3/uL (4.0-10.5)
--- NOTE | 2019-04-06 22:03 | RADIOLOGY REPORT (SQ) ---
EXAM DESCRIPTION: US TRANSVAGINAL COMPLETED DATE/TME: 04/06/2019 20:18 CLINICAL HISTORY: 23 years, Female, +preg, vag bleed COMPARISON: None. TECHNIQUE: Axial 2-D grayscale images of the pelvis were acquired. Doppler was utilized. LIMITATIONS: None. FINDINGS: Uterus measures 8.3 x 4.5 x 4.1 cm in size. Cervical length is 2.1 cm. Cervix is closed. Endometrial stripe thickness measures 0.4 cm. No intrauterine gestational sac is identified. Right ovary measures 2.3 x 3.6 x 2.0 cm in size. It demonstrates elements of Doppler flow. Left ovary was not visualized. IMPRESSION: No intrauterine is identified. Serial surveillance with beta hCG is suggested along with pelvic ultrasound to assess for the development of an intrauterine as an ectopic is not excluded at this time. Nonvisualization left ovary. copyright 2010 [employer]- All Rights Reserved
--- NOTE | 2019-04-06 22:05 | ER Document Report ---
ED GI/ - General Chief Complaint: Vaginal Bleeding Stated Complaint: VAGINAL BLEEDING Time Seen by Provider: 04/06/19 20:14 [facility]: [facility] [[facility]] - Follow up as needed Mode of Arrival: Ambulatory Notes: Patient is a 23-year-old female that comes emergency department for chief complaint of vaginal bleeding and lower abdominal cramping. She is G3, P1 at approximately 7 weeks since her last menstrual period, she had a positive home test. She states she passed some blood clots, she also has some vaginal discharge mixed in with the blood. She denies dysuria, flank pain, fever, vomiting. TRAVEL OUTSIDE OF THE [place] IN LAST 30 DAYS: No - Related Data Allergies/Adverse Reactions: No Known Allergies Allergy (Verified 04/06/19 18:50) Past Medical History - General Information source: Patient - Social History Smoking Status: Current Every Day Smoker Chew tobacco use (# tins/day): No Frequency of alcohol use: Occasional Drug Abuse: Marijuana Lives with: Family Family History: Reviewed & Not Pertinent Patient has suicidal ideation: No Patient has homicidal ideation: No Renal/ Medical History: Denies: Hx Peritoneal Dialysis GI Medical History: Reports: Hx Ulcer Past Surgical History: Reports: Hx Appendectomy, Hx Tonsillectomy - and adenoids - Immunizations Immunizations up to date: Yes Hx Diphtheria, Pertussis, Tetanus Vaccination: Yes Review of Systems - Review of Systems Constitutional: No symptoms reported EENT: No symptoms reported Cardiovascular: No symptoms reported Respiratory: No symptoms reported Gastrointestinal: See HPI Genitourinary: No symptoms reported Female Genitourinary: See HPI Musculoskeletal: No symptoms reported Skin: No symptoms reported Hematologic/Lymphatic: No symptoms reported Neurological/Psychological: No symptoms reported Physical Exam - Vital signs Vitals: Temp Pulse Resp BP Pulse Ox 99.2 F 107 H 16 133/88 H 98 04/06/19 19:00 04/06/19 19:00 04/06/19 19:00 04/06/19 19:00 04/06/19 19:00 - Notes Notes: GENERAL: Alert, interacts well. No acute distress. HEAD: Normocephalic, atraumatic. EYES: Pupils equal, round, and reactive to light. Extraocular movements intact. ENT: Oral mucosa moist, tongue midline. Oropharynx unremarkable. NECK: Full range of motion. Supple. Trachea midline. LUNGS: Clear to auscultation bilaterally, no wheezes, rales, or rhonchi. No respiratory distress. HEART: Regular rate and rhythm. No murmur ABDOMEN: Soft, non-tender. Non-distended. Bowel sounds present in all 4 quadrants. GENITOURINARY: No concerning findings externally. Small amount of bleeding noted, no heavy bleeding or tissue passage, cervix appears normal, no abnormal discharge or tenderness noted. Exam performed with Leta STILES at bedside. EXTREMITIES: Moves all 4 extremities spontaneously. No edema, normal radial and dorsalis pedis pulses bilaterally. No cyanosis. BACK: no cervical, thoracic, lumbar midline tenderness. No saddle anesthesia, normal distal neurovascular exam. Moves all extremities in full range of motion. NEUROLOGICAL: Alert and oriented x3. Normal speech. Cranial nerves II through XII grossly intact. PSYCH: Normal affect, normal mood. SKIN: Warm, dry, normal turgor. No rashes or lesions noted. Course - Re-evaluation Re-evalutation: Patient is very well-appearing, smiling, laughing, has a soft benign abdomen on my exam. She did have borderline tachycardia but her vital signs were otherwise unremarkable, and on my exam she does not have tachycardia. She has scant bleeding on my exam without concerning findings on pelvic exam otherwise. Leukocytosis of 18,000 noted with elevation of neutrophils but no bandemia. No anemia. Chemistry nonspecific. hCG is very low but still positive at 6. Blood type is a positive. Urinalysis shows elevated specific gravity, some blood contamination I suspect, otherwise unremarkable. Ultrasound without any acute findings. Discussed with patient. Pelvic exam was performed because of reported pelvic pain along with leukocytosis, however this was very unremarkable with no evidence of infection and only light bleeding. Wet mount is nonspecific. I did offer IV fluids because I suspect leukocytosis is from dehydration based on her evaluation but she declined, she is hydrating with no difficulty orally and she states she will do this at home. Provided with copy of her instructions, discussed follow-up options, discussed return precautions. Patient and significant other state understanding and agreement. - Vital Signs Vital signs: Temp Pulse Resp BP Pulse Ox 98.4 F 96 16 132/82 H 98 04/06/19 23:22 04/06/19 23:22 04/06/19 23:22 04/06/19 23:22 04/06/19 23:22 - Laboratory Result Diagrams: 04/06/19 21:22 04/06/19 21:22 Laboratory results interpreted by me: 04/06/19 04/06/19 04/06/19 21:22 21:22 22:19 WBC 18.1 H RBC 5.41 H RDW 14.8 H Absolute Neuts (auto) 11.4 H Absolute Lymphs (auto) 5.1 H Beta HCG, Quant 6.80 H Urine Protein 100 H Urine Ketones TRACE H Urine Blood LARGE H Urine Urobilinogen 2.0 H Discharge - Discharge Clinical Impression: Vaginal bleeding affecting early Condition: Stable Disposition: HOME, SELF-CARE Additional Instructions: Your is very early. It is too early to tell if this is developing in the or not. In addition to this I am unsure if this is going to progress normally or to a miscarriage. To monitor this I do recommend that you have your hCG rechecked as we discussed, ideally in 48 to 72 hours, see the script for this to be performed. Follow up with OBGYN for additional management, return to the emergency department for any concerning symptoms including very heavy bleeding, dizziness, severe pain, vomiting, fever, or something is not right. Forms: Follow-Up Laboratory Testing Referrals: [facility] [Provider Group] - Follow up as needed
[2019-04-06 22:23] LABS: ANION GAP 12 (5-19); BLOOD UREA NITROGEN 9 mg/dL (7-20); CALCIUM 9.9 mg/dL (8.4-10.2); CARBON DIOXIDE 23 mmol/L (22-30); CHLORIDE 102 mmol/L (98-107); GLUCOSE 94 mg/dL (75-110); POTASSIUM 3.9 mmol/L (3.6-5.0)
[2019-04-06 22:41] LABS: APPEARANCE,URINE SLIGHTLY-CLOUDY; BILIRUBIN,URINE NEGATIVE (NEGATIVE); COLOR,URINE AMBER; GLUCOSE, URINE NEGATIVE (NEGATIVE); KETONES,URINE TRACE mg/dL (NEGATIVE); LEUKOCYTE ESTERASE,URINE NEGATIVE (NEGATIVE); NITRITE,URINE NEGATIVE (NEGATIVE); PROTEIN,URINE 100 mg/dL (NEGATIVE); URINE SPECIFIC GRAVITY 1.031
[2019-04-06 23:01] LABS: RBCS (WET MOUNT) 4+ RBCS SEEN; T.VAGINALIS (WET MOUNT) NO TRICHOMONAS SEEN; WBCS (WET MOUNT) FEW WBCS SEEN; YEAST (WET MOUNT) NO YEAST SEEN
[2019-04-06 23:25] VITALS: BP 132/82
[2019-04-07 00:28] LABS: CHLAM PCR NOT DETECTED (NOT DETECT)
== END 2019-04-06 23:25 | disposition home or self-care (01) ==
LOC: ER 18:46
DX: O20.9 Hemorrhage in early pregnancy, unspecified (principal); O99.119 Other diseases of the blood and blood-forming organs and certain disorders involving the immune mechanism complicating pregnancy, unspecified trimester; D72.828 Other elevated white blood cell count; O26.899 Other specified pregnancy related conditions, unspecified trimester; R10.2 Pelvic and perineal pain; N89.8 Other specified noninflammatory disorders of vagina; O99.330 Smoking (tobacco) complicating pregnancy, unspecified trimester; F17.200 Nicotine dependence, unspecified, uncomplicated; O99.320 Drug use complicating pregnancy, unspecified trimester; F12.10 Cannabis abuse, uncomplicated; Z3A.00 Weeks of gestation of pregnancy not specified; Z90.49 Acquired absence of other specified parts of digestive tract
CPT/HCPCS: 36415; 76817; 80048; 81001; 84702; 85025; 86900; 86901; 87210; 87491; 87591; 99284

== ENCOUNTER → 2019-04-08 | Outpatient (CLI) | payer MEDICAID | LOC: LAB 16:53 | DX: O26.851 Spotting complicating pregnancy, first trimester (principal) | CPT/HCPCS: 36415; 84702 ==

== ENCOUNTER 2019-04-29 19:08 | Emergency (ER) | payer MEDICAID ==
[2019-04-29] MEDS ORDERED: ONDANSETRON 4 MG TAB.RAPDIS PO ONE (19:34)
--- NOTE | 2019-04-29 19:34 | ER Document Report ---
ED Medical Screen (RME) - General Chief Complaint: Abdominal Pain Stated Complaint: ABDOMINAL PAIN Time Seen by Provider: 04/29/19 19:31 Primary Care Provider: MARANDA PRINCE PA [Primary Care Provider] - Follow up as needed Mode of Arrival: Ambulatory Information source: Patient Notes: 23-year-old female presented to ED for bilateral lower abdominal/pelvic pain for the last 3 days. She states it does go down in the groin and around to the back. She states she stays nauseated and she has emesis in her mouth that time but does not spit it out. Denies any diarrhea states she may be a little constipated. States she had a miscarriage on April 05 has not had a cycle since then. Smokes pack cigarettes a day denies any drinking or drugs. States there is a possibility that she is again. She is alert oriented respirations regular and unlabored speaking in full sentences. I have greeted and performed a rapid initial assessment of this patient. A comprehensive ED assessment and evaluation of the patient, analysis of test results and completion of medical decision making process will be conducted by an additional ED providers. TRAVEL OUTSIDE OF THE [place] IN LAST 30 DAYS: No - Related Data Allergies/Adverse Reactions: No Known Allergies Allergy (Verified 04/06/19 18:50) Past Medical History Renal/ Medical History: Denies: Hx Peritoneal Dialysis GI Medical History: Reports: Hx Ulcer Past Surgical History: Reports: Hx Appendectomy, Hx Tonsillectomy - and adenoids - Immunizations Immunizations up to date: Yes Hx Diphtheria, Pertussis, Tetanus Vaccination: Yes Physical Exam - Vital signs Vitals: Temp Pulse Resp BP Pulse Ox 98.5 F 109 H 20 126/78 H 100 04/29/19 19:17 04/29/19 19:17 04/29/19 19:17 04/29/19 19:17 04/29/19 19:17 Course - Vital Signs Vital signs: Temp Pulse Resp BP Pulse Ox 98.5 F 109 H 20 126/78 H 100 04/29/19 19:17 04/29/19 19:17 04/29/19 19:17 04/29/19 19:17 04/29/19 19:17 Doctor's Discharge - Discharge Referrals: MARANDA PRINCE PA [Primary Care Provider] - Follow up as needed
[2019-04-29 20:14] LABS: ABSOLUTE BASOPHILS # (AUTO) 0.1 10^3/uL (0.0-0.2); ABSOLUTE EOSINOPHILS # (AUTO) 0.4 10^3/uL (0.0-0.6); ABSOLUTE LYMPHOCYTES (AUTO) 3.6 10^3/uL (0.5-4.7); ABSOLUTE MONOCYTES (AUTO) 1.1 10^3/uL (0.1-1.4); ABSOLUTE NEUT (AUTO) 7.9 10^3/uL (1.7-8.2); EOSINOPHILS % (AUTO) 3.3 % (0-6); HEMATOCRIT 44.9 % (36.0-47.0); HEMOGLOBIN 15.2 g/dL (12.0-15.5); LYMPHOCYTES % (AUTO) 27.2 % (13-45); MEAN CORPUSCULAR HGB CONC 33.7 g/dL (32.0-36.0); MEAN CORPUSCULAR VOLUME 83 fl (80-97); MONOCYTES % (AUTO) 8.5 % (3-13); PLATELET COUNT 295 10^3/uL (150-450); RED BLOOD COUNT 5.41 10^6/uL (3.72-5.28); RED CELL DISTRIBUTION WIDTH 14.9 % (11.5-14.0); TOTAL CELLS COUNTED % (AUTO) 100 %; WHITE BLOOD COUNT 13.1 10^3/uL (4.0-10.5)
[2019-04-29 20:24] LABS: APPEARANCE,URINE CLOUDY; BILIRUBIN,URINE NEGATIVE (NEGATIVE); COLOR,URINE YELLOW; GLUCOSE, URINE NEGATIVE (NEGATIVE); KETONES,URINE NEGATIVE (NEGATIVE); LEUKOCYTE ESTERASE,URINE MODERATE (NEGATIVE); NITRITE,URINE NEGATIVE (NEGATIVE); PROTEIN,URINE 30 mg/dL (NEGATIVE); URINE SPECIFIC GRAVITY 1.018
[2019-04-29 20:29] LABS: ALBUMIN 4.3 g/dL (3.5-5.0); ALKALINE PHOSPHATASE 75 U/L (38-126); ANION GAP 10 (5-19); ASPARTATE AMINO TRANSFERASE 18 U/L (14-36); BILIRUBIN,DIRECT 0.1 mg/dL (0.0-0.4); BILIRUBIN,TOTAL 0.2 mg/dL (0.2-1.3); BLOOD UREA NITROGEN 10 mg/dL (7-20); CALCIUM 9.4 mg/dL (8.4-10.2); CARBON DIOXIDE 26 mmol/L (22-30); CHLORIDE 104 mmol/L (98-107); GLUCOSE 71 mg/dL (75-110); POTASSIUM 3.9 mmol/L (3.6-5.0); TOTAL PROTEIN 7.5 g/dL (6.3-8.2)
[2019-04-29 21:29] LABS: BACTERIA (WET MOUNT) 4+ BACTERIA SEEN; EPITHELIALS (WET MOUNT) 4+ EPITHELIALS SEEN; RBCS (WET MOUNT) FEW RBCS SEEN; T.VAGINALIS (WET MOUNT) NO TRICHOMONAS SEEN; WBCS (WET MOUNT) FEW WBCS SEEN; YEAST (WET MOUNT) YEAST SEEN
--- NOTE | 2019-04-29 21:57 | ER Document Report ---
HPI - HPI Time Seen by Provider: 04/29/19 19:31 Pain Level: 4 Notes: RME note: 23-year-old female presented to ED for bilateral lower abdominal/pelvic pain for the last 3 days. She states it does go down in the groin and around to the back. She states she stays nauseated and she has emesis in her mouth that time but does not spit it out. Denies any diarrhea states she may be a little constipated. States she had a miscarriage on April 05 has not had a cycle s scout then. Smokes pack cigarettes a day denies any drinking or drugs. States there is a possibility that she is again. She is alert oriented respirations regular and unlabored speaking in full sentences. - REPRODUCTIVE Reproductive: DENIES: : Past Medical History - General Information source: Patient - Social History Smoking Status: Current Every Day Smoker Family History: Reviewed & Not Pertinent Patient has suicidal ideation: No Patient has homicidal ideation: No Renal/ Medical History: Denies: Hx Peritoneal Dialysis GI Medical History: Reports: Hx Ulcer Past Surgical History: Reports: Hx Appendectomy, Hx Tonsillectomy - and adenoids - Immunizations Immunizations up to date: Yes Hx Diphtheria, Pertussis, Tetanus Vaccination: Yes Vertical Provider Document - CONSTITUTIONAL Notes: PHYSICAL EXAMINATION: GENERAL: Well-appearing, well-nourished and in no acute distress. HEAD: Atraumatic, normocephalic. EYES: Pupils equal round and reactive to light, extraocular movements intact, conjunctiva are normal. ENT: Nares patent, oropharynx clear without exudates. Moist mucous membranes. NECK: Normal range of motion, supple without lymphadenopathy LUNGS: Breath sounds clear to auscultation bilaterally and equal. No wheezes rales or rhonchi. HEART: Regular rate and rhythm without murmurs ABDOMEN: Soft, nontender, nondistended abdomen. No guarding, no rebound. No masses appreciated. Female : Normal external genitalia, no obvious cervical motion tenderness or adnexal tenderness, thin white vaginal discharge. Musculoskeletal: Normal range of motion, no pitting or edema. No cyanosis. NEUROLOGICAL: Cranial nerves grossly intact. Normal speech, normal gait. Normal sensory, motor exams PSYCH: Normal mood, normal affect. SKIN: Warm, Dry, normal turgor, no rashes or lesions noted. - INFECTION CONTROL TRAVEL OUTSIDE OF THE [place] IN LAST 30 DAYS: No Course - Re-evaluation Re-evalutation: Microbiology 04/29/19 19:55 Urine Culture - Preliminary Clean Catch Midstream [facility] 04/29/19 04/29/19 04/29/19 19:55 20:02 20:02 WBC 13.1 H RBC 5.41 H Hgb 15.2 Hct 44.9 MCV 83 MCH 28.0 MCHC 33.7 RDW 14.9 H Plt Count 295 Lymph % (Auto) 27.2 Person % (Auto) 8.5 Eos % (Auto) 3.3 Baso % (Auto) 1.0 Absolute Neuts (auto) 7.9 Absolute Lymphs (auto) 3.6 Absolute Monos (auto) 1.1 Absolute Eos (auto) 0.4 Absolute Basos (auto) 0.1 Seg Neutrophils % 60.0 Sodium 139.5 Potassium 3.9 Chloride 104 Carbon Dioxide 26 Anion Gap 10 BUN 10 Creatinine 0.71 Est GFR ( Amer) > 60 Est GFR (MDRD) Non-Af > 60 Glucose 71 L Calcium 9.4 Total Bilirubin 0.2 Direct Bilirubin 0.1 Neonat Total Bilirubin Not Reportable Neonat Direct Bilirubin Not Reportable Neonat Indirect Bili Not Reportable AST 18 ALT 9 Alkaline Phosphatase 75 Total Protein 7.5 Albumin 4.3 Beta HCG, Quant < 2.39 Total Beta HCG NEGATIVE Urine Color YELLOW Urine Appearance CLOUDY Urine pH 9.0 Ur Specific [place] 1.018 Urine Protein 30 H Urine Glucose (UA) NEGATIVE Urine Ketones NEGATIVE Urine Blood NEGATIVE Urine Nitrite NEGATIVE Urine Bilirubin NEGATIVE Urine Urobilinogen 4.0 H Ur Leukocyte Esterase MODERATE H Urine WBC (Auto) 87 Urine RBC (Auto) 3 Urine Bacteria (Auto) 1+ Squamous Epi Cells Auto 8 Urine Mucus (Auto) MANY Urine Ascorbic Acid NEGATIVE Epi Cells (Wet Prep) Bacteria (Wet Prep) Trichomonas (Wet Prep) Vaginal WBC Vaginal RBC Vaginal Yeast Chlamydia DNA (PCR) N.gonorrhoeae DNA (PCR) 04/29/19 04/29/19 21:14 21:14 WBC RBC Hgb Hct MCV MCH MCHC RDW Plt Count Lymph % (Auto) Person % (Auto) Eos % (Auto) Baso % (Auto) Absolute Neuts (auto) Absolute Lymphs (auto) Absolute Monos (auto) Absolute Eos (auto) Absolute Basos (auto) Seg Neutrophils % Sodium Potassium Chloride Carbon Dioxide Anion Gap BUN Creatinine Est GFR ( Amer) Est GFR (MDRD) Non-Af Glucose Calcium Total Bilirubin Direct Bilirubin Neonat Total Bilirubin Neonat Direct Bilirubin Neonat Indirect Bili AST ALT Alkaline Phosphatase Total Protein Albumin Beta HCG, Quant Total Beta HCG Urine Color Urine Appearance Urine pH Ur Specific [place] Urine Protein Urine Glucose (UA) Urine Ketones Urine Blood Urine Nitrite Urine Bilirubin Urine Urobilinogen Ur Leukocyte Esterase Urine WBC (Auto) Urine RBC (Auto) Urine Bacteria (Auto) Squamous Epi Cells Auto Urine Mucus (Auto) Urine Ascorbic Acid Epi Cells (Wet Prep) 4+ EPITHELIALS SEEN Bacteria (Wet Prep) 4+ BACTERIA SEEN Trichomonas (Wet Prep) NO TRICHOMONAS SEEN Vaginal WBC FEW WBCS SEEN Vaginal RBC FEW RBCS SEEN Vaginal Yeast YEAST SEEN Chlamydia DNA (PCR) NOT DETECTED N.gonorrhoeae DNA (PCR) NOT DETECTED - Vital Signs Vital signs: Temp Pulse Resp BP Pulse Ox 98.5 F 109 H 20 126/78 H 100 04/29/19 19:17 04/29/19 19:17 04/29/19 19:17 04/29/19 19:17 04/29/19 19:17 - Laboratory Result Diagrams: 04/29/19 20:02 04/29/19 20:02 Laboratory results interpreted by me: 04/29/19 04/29/19 04/29/19 19:55 20:02 20:02 WBC 13.1 H RBC 5.41 H RDW 14.9 H Glucose 71 L Urine Protein 30 H Urine Urobilinogen 4.0 H Ur Leukocyte Esterase MODERATE H Discharge - Discharge Clinical Impression: Bacterial vaginosis Urinary tract infection Qualifiers: Urinary tract infection type: site unspecified Hematuria presence: without hematuria Qualified Code(s): N39.0 - Urinary tract infection, site not specified Condition: Stable Disposition: HOME, SELF-CARE Additional Instructions: Your work-up today shows that you have bacterial vaginosis and urinary tract infection. Please be sure to take all medications as prescribed. Follow-up with your primary care provider for a follow-up in 1 week. [facility] any new or worsening symptoms to include persistent vomiting or fever that does not respond to Tylenol or ibuprofen. Vaginosis, Bacterial Your exam shows you have bacterial vaginosis. This condition is due to an overgrowth of bacteria in the vagina. Symptoms may include vaginal itching or pain, a smelly discharge, and sometimes burning with urination. Normally this is not transmitted by sexual contact. Vaginosis can be treated with oral or topical antibiotics. Metronidazole (Flagyl) pills are usually effective. Topical vaginal creams include Cleocin and Metro-Gel. You should avoid sexual contact until your symptoms are all better. Call the doctor if you develop pelvic pain, fever, or problems with urination, or if you don't improve as expected. Urinary Tract Infection Your evaluation indicates that you have a urinary tract infection. This is due to germs growing in the bladder. This is a common problem. This infection usually responds quickly to antibiotics. Your antibiotic should be taken exactly as prescribed. Drink plenty of fluids -- three to four quarts a day. Occasionally, a bladder anesthetic will be prescribed to help stop the feeling of urgency until the antibiotic has a chance to clear the infection. This may cause your urine to be dark orange. Certain urine infections require a culture. If the doctor obtained a culture, the results will be back in two days. You should call to see if a change in treatment is needed. A repeat urinalysis after you finish treatment is often recommended. The physician will let you know if further testing is required. Call the doctor if you develop fever, chills, flank pain, inability to urinate, or blood in the urine. Prescriptions: Cephalexin [Cephalexin 500 MG Tablet] 1 tab PO BID #14 tablet Metronidazole [Flagyl 500 mg Tablet] 500 mg PO BID #14 tablet Referrals: MARANDA PRINCE PA [[employer] PROFESSIONAL] - Follow up as needed
[2019-04-29 22:12] VITALS: BP 128/72
[2019-04-29 22:52] LABS: CHLAM PCR NOT DETECTED (NOT DETECT)
== END 2019-04-29 22:12 | disposition home or self-care (01) ==
LOC: ER 19:08
DX: N76.0 Acute vaginitis (principal); B96.89 Other specified bacterial agents as the cause of diseases classified elsewhere; N39.0 Urinary tract infection, site not specified; R10.30 Lower abdominal pain, unspecified; R10.2 Pelvic and perineal pain; R11.0 Nausea; F17.210 Nicotine dependence, cigarettes, uncomplicated
CPT/HCPCS: 36415; 87086; 87210; 84702; 85025; 87088; 80053; 81001; 87186; 87491; 87591; S0119